=== PATIENT | male | born 1965 | race African-American/Black ===

== ENCOUNTER 2022-05-28 10:55 | Day surgery (SDC) | payer OTHER, SELFPAY ==
[2022-05-19 09:55] VITALS: BMI 32.5
[2022-05-28 11:33] VITALS: BP 138/65; PULSE 71; RESP 18; TEMP 36.4; O2SAT 99
--- NOTE | 2022-05-28 12:46 | EXP.ANES.CKL ---
[facility] Disclaimer: The information contained in this section may have been updated after the patient was seen, as this information can be updated by other users. Medical History Closed right ankle fracture History of colon polyps Surgical History History of ankle fusion Family History Other Alcoholism Asthma Cancer Diabetes Heart attack Hyperlipidemia Hypertension Kidney disease Stroke Social History Smoking Status: Never smoker alcohol intake: current substance use type: denies use current occupational status: employed Travel in the last 8 weeks: None household members: spouse housing: house marital status: education level: college caffeine: Yes special francesca needs: No agree to transfusion: No do you feel safe at home: Yes victim of physical abuse: No victim of emotional abuse: No victim of sexual abuse: No would you like helpful sources: No [facility] Anesthesia Checklist Patient Identification Patient Identification: Arm Band and Verbal (Name & ) Structural Data Admitted From: Home Planned Operative Procedure/s: Colonoscopy Consent for Planned Operative Procedure(s) Verified: Yes NPO Status Verified Time NPO: 00:00 Additional verifications Anesthesia Reactions: No Airway Assessment C-Spine Mobility Assessed: Yes TMJ Mobility Assessed: Yes Dentition: Good Dentition Neurological Assessment Level of Consciousness: Awake Hx Seizures: No Numbness or tingling in extremities: No Anesthesia Plan Anesthesia Risk discussed: Yes Anesthesia Plan: Verified ASA Class: II Anesthesia Type: MAC
[2022-05-28 12:57] VITALS: O2SAT 97
--- NOTE | 2022-05-28 13:09 | HMH.SCOPE ---
Procedure: Date: 05/28/22 Patient Date of :: 1965 Procedure Performed:: Colonoscopy Indications:: History of adenomatous polyps Performing Provider:: Juvencio Villagomez MD Referring Provider:: Andrew Griffiths MD Sedation:: See RN records Procedure:: After placing the patient in the left lateral decubitus position, the colonoscopy was gently inserted into the rectum and under direct visualization advanced to the cecum which was identified by transillumination in the right lower quadrant, identification of the ileocecal valve, appendiceal orifice, and cecal strap. Color, texture, mucosa, and anatomy of the colon were carefully examined with the scope. Findings:: Anal canal: normal Rectum:internal hemorrhoids Sigmoid colon: diverticulosis Descending colon: normal without polyps or inflammatory changes Splenic flexure: normal Transverse colon: normal without polyps or inflammatory changes Hepatic flexure: normal Ascending colon: normal without polyps or inflammatory changes Cecum: normal Terminal ileum: not visualized Recommendations:: Repeat colonoscopy in 5 years Complications:: None Estimated blood obtained (mL): 0
[2022-05-28 13:10] VITALS: BP 113/75; PULSE 90; RESP 14; TEMP 36.6; O2SAT 96
[2022-05-28 13:20] VITALS: BP 112/74; PULSE 89; RESP 17; O2SAT 99
[2022-05-28 13:30] VITALS: BP 145/88; PULSE 83; RESP 16; O2SAT 98
[2022-05-28 13:40] VITALS: BP 143/96; PULSE 85; RESP 17; O2SAT 98
== END 2022-05-28 14:00 | disposition home or self-care (01) ==
PROVIDERS: PCP Internal Medicine; Visit Provider Internal Medicine
PROC: 0DJD8ZZ Inspection of Lower Intestinal Tract, Via Natural or Artificial Opening Endoscopic (ICD-10-PCS; CPT 45378; principal; 2022-05-28 12:00)
DX: Z12.11 Encounter for screening for malignant neoplasm of colon (principal); Z86.010 Personal history of colon polyps; K64.8 Other hemorrhoids; K57.30 Diverticulosis of large intestine without perforation or abscess without bleeding; Z79.899 Other long term (current) drug therapy
CPT/HCPCS: 45378; J2704